=== PATIENT | female | born 1995 | race American Indian/Alaskan Native ===

== ENCOUNTER → 2021-12-17 | Emergency (ER) | payer SELFPAY ==
[~2021-12-17] VITALS: Ht 172.7 cm; Wt 68.0 kg
[~2021-12-17] MED LIST: AUGMENTIN 875-1 EACH PO; ERYTHROMYCIN (OPTH) 3.5 GM OINT OP ONE; LACTATED RINGER'S 1,000 ML INJ ONE; MUPIROCIN 2% OINT 22 GM TUBE ONE; PHYTONADIONE 10MG/ML 1 ML ONE
[2021-12-17 08:28] LABS: BASOPHILS % 0.3 % (0.0-1.0); EOSINOPHILS % 0.2 % (0.0-6.0); HEMATOCRIT 41.9 % (34.2-44.1); HEMOGLOBIN 13.3 g/dL (12.0-16.0); LYMPHOCYTES # (AUTO) 1.8 (1.0-3.2); LYMPHOCYTES % 11.7 % (18.0-39.1); MEAN CORPUSCULAR HEMOGLOBIN 28.2 pg (28-32); MEAN CORPUSCULAR HGB CONC 31.7 g/dL (31-35); MONOCYTES # (AUTO) 0.6 (0.2-0.8); NEUTROPHILS % 83.1 % (38.7-80.0); PLATELET COUNT 243 x10e3/uL (140-360); RED BLOOD COUNT 4.71 x10e6/uL (3.6-5.1); RED CELL DISTRIBUTION WIDTH 12.8 % (11.7-14.4)
[2021-12-17 08:57] LABS: ALBUMIN 2.4 g/dL (3.5-5.0); ALBUMIN/GLOBULIN RATIO 0.5 (0.8-2.0); ANION GAP 16.3 mmol/L (8-16); CALCIUM 8.5 mg/dL (8.4-10.2); CREATININE, SERUM 0.67 mg/dL (0.57-1.11); POTASSIUM 4.3 mmol/L (3.5-5.1)
== END | disposition other institution (70) ==
LOC: EDBD 07:42 → ER 07:43
DX: O99.324 Drug use complicating childbirth (principal); O99.334 Smoking (tobacco) complicating childbirth; Z37.0 Single live birth
CPT/HCPCS: 36415; 80053; 82948; 85025; 86850; 86900; 88307; 99284; J3430; J7121